=== PATIENT | female | born 1965 ===

== ENCOUNTER 2019-07-17 07:52 | Day surgery (SDC) | payer MEDICAID ==
[~2019-07-17] VITALS: Ht 149.9 cm; Wt 81.6 kg
[2019-07-17] MEDS ORDERED: fentaNYL 0.05 MG/ML VIAL ONE (09:40)
[2019-07-17] MEDS ORDERED: MIDAZOLAM 2 MG/2 ML VIAL ONE ×2 (09:40)
[2019-07-17] MEDS ORDERED: LIDOCAINE 2% 100 MG/5 ML UJET TP ONE (09:40)
[2019-07-17] MEDS ORDERED: MIDAZOLAM 2 MG/2 ML VIAL IVP ONE (11:15)
[2019-07-17] MEDS ORDERED: fentaNYL 0.05 MG/ML VIAL IVP ONE (11:15)
== END 2019-07-17 11:30 | disposition home or self-care (01) ==
LOC: MOR 07:52 → MMU 08:29 → MOR 11:30
PROVIDERS: ATTEND Internal Medicine Gastroenterology
DX: Z12.11 Encounter for screening for malignant neoplasm of colon (principal); D12.2 Benign neoplasm of ascending colon; K29.80 Duodenitis without bleeding; K29.70 Gastritis, unspecified, without bleeding
CPT/HCPCS: 36415; 43239; 45385; 86677; J2250; J3010